=== PATIENT | female | born 1995 | race African-American/Black ===

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

== ENCOUNTER 2017-01-06 21:59 | Outpatient (CLI) | payer MEDICAID ==
--- NOTE | 2017-01-06 22:05 | Non Stress Test Report ---
Non Stress Test Datetime Report Generated by CPN: 01/06/2017 22:05 DEMOGRAPHIC EGA NST: 34.5 INDICATION Indication for Study: Ordered by Provider MONITORING Monitor Explained: Monitor Explained; Test Explained; Patient Verbalized Understanding Time on Monitor: 12/31/2016 22:20 Time off Monitor: 12/31/2016 22:59 NST Duration: 39 NST INTERVENTIONS NST Interventions: PO Hydration Physician Notified NST: Dr Richard BABY A: [id number] BABY A Contraction Frequency : x1 FHR Baseline : 140 Accelerations : 15X15 Decelerations : None Variability : Moderate 6-25bpm NST Review: Meets Criteria for Reactive NST NST Review and Verified By : Ramez Alon RN NST Results: Reactive NST REPORT Report Trigger: Send Report
[2017-01-06 22:46] LABS: APPEARANCE,URINE CLEAR; BILIRUBIN,URINE NEGATIVE (NEGATIVE); GLUCOSE, URINE NEGATIVE (NEGATIVE); KETONES,URINE NEGATIVE (NEGATIVE); LEUKOCYTE ESTERASE,URINE NEGATIVE (NEGATIVE); NITRITE,URINE NEGATIVE (NEGATIVE); PROTEIN,URINE NEGATIVE (NEGATIVE); URINE SPECIFIC GRAVITY 1.005; UROBILINOGEN,URINE NEGATIVE mg/dL (<2.0)
[2017-01-06 23:00] LABS: URINE BARBITURATES SCREEN NEGATIVE; URINE METHADONE SCREEN NEGATIVE; URINE OPIATES LOW NEGATIVE; URINE PHENCYCLIDINE SCREEN NEGATIVE
--- NOTE | 2017-01-06 23:57 | RADIOLOGY REPORT (SQ) ---
EXAM DESCRIPTION: U/S OB LIMITED COMPLETED DATE/TIME: 01/06/2017 11:48 pm REASON FOR STUDY: Placenta Status, eval for abruption COMPARISON: None. TECHNIQUE: Limited transvaginal and transabdominal grayscale ultrasound for evaluation of specific r equested obstetrical parameters. LIMITATIONS: None. FINDINGS: CERVICAL LENGTH: 3.0 cm. Closed. FHR: 141 beats per minute. PRESENTATION: Cephalic. OTHER: The placenta is posterior in location. IMPRESSION: LIMITED OBSTETRICAL ULTRASOUND WITH MEASURED PARAMETERS DELINEATED ABOVE. Trimester of : Third trimester - 28 weeks to delivery. TECHNICAL DOCUMENTATION: JOB ID: [id number] [employer]- All Rights Reserved
--- NOTE | 2017-01-07 00:24 | Non Stress Test Report ---
Non Stress Test Datetime Report Generated by CPN: 01/07/2017 00:24 DEMOGRAPHIC EGA NST: 35.4 INDICATION Indication for Study: Ordered by Provider MONITORING Monitor Explained: Monitor Explained; Test Explained; Patient Verbalized Understanding Time on Monitor: 01/06/2017 22:25 Time off Monitor: 01/07/2017 00:12 NST Duration: 107 NST INTERVENTIONS NST Interventions: PO Hydration; Reposition Patient Physician Notified NST: Carter BABY A Movement : Present Contraction Frequency : none FHR Baseline : 145 Accelerations : 15X15 Decelerations : None Variability : Moderate 6-25bpm NST Review: Meets Criteria for Reactive NST NST Review and Verified By : CAITLIN [place] Results: Reactive NST REPORT Report Trigger: Send Report
== END 2017-01-07 00:19 | disposition home or self-care (01) ==
LOC: LC 21:59
PROVIDERS: ATTEND Student in an Organized Health Care Education/Training Program
PROC: 4A1HXCZ Monitoring of Products of Conception, Cardiac Rate, External Approach (ICD-10-PCS; principal; 2017-01-06)
DX: O47.03 False labor before 37 completed weeks of gestation, third trimester (principal); Z3A.35 35 weeks gestation of pregnancy
CPT/HCPCS: 59025; 76815; 80307; 81001

== ENCOUNTER 2017-01-26 12:32 | Outpatient (CLI) | payer MEDICAID ==
[2017-01-26 13:19] LABS: APPEARANCE,URINE CLOUDY; BILIRUBIN,URINE NEGATIVE (NEGATIVE); GLUCOSE, URINE NEGATIVE (NEGATIVE); KETONES,URINE NEGATIVE (NEGATIVE); LEUKOCYTE ESTERASE,URINE NEGATIVE (NEGATIVE); NITRITE,URINE NEGATIVE (NEGATIVE); PROTEIN,URINE NEGATIVE (NEGATIVE); URINE SPECIFIC GRAVITY 1.006; UROBILINOGEN,URINE NEGATIVE mg/dL (<2.0)
[2017-01-26 13:50] LABS: URINE BARBITURATES SCREEN NEGATIVE; URINE METHADONE SCREEN NEGATIVE; URINE OPIATES LOW NEGATIVE; URINE PHENCYCLIDINE SCREEN NEGATIVE
--- NOTE | 2017-01-26 14:22 | Non Stress Test Report ---
Non Stress Test Datetime Report Generated by CPN: 01/26/2017 14:22 DEMOGRAPHIC Test Number: 1 EGA NST: 38.3 INDICATION Indication for Study: Ordered by Provider Indication for Study (NST) Other: LC MONITORING Monitor Explained: Monitor Explained; Test Explained; Patient Verbalized Understanding Time on Monitor: 01/26/2017 12:53 NST INTERVENTIONS NST Interventions: PO Hydration Physician Notified NST: Tolbert BABY A: [id number] BABY A Movement : Present Contraction Frequency : 0 FHR Baseline : 135 Accelerations : 15X15 Decelerations : None Variability : Moderate 6-25bpm NST Review: Meets Criteria for Reactive NST NST Review and Verified By : D Bellavance RNC NST Results: Reactive NST REPORT Report Trigger: Send Report
== END 2017-01-26 14:23 | disposition home or self-care (01) ==
LOC: LC 12:32
PROVIDERS: ATTEND Obstetrics & Gynecology
PROC: 4A1HXCZ Monitoring of Products of Conception, Cardiac Rate, External Approach (ICD-10-PCS; principal; 2017-01-26)
DX: O47.1 False labor at or after 37 completed weeks of gestation (principal); Z3A.38 38 weeks gestation of pregnancy
CPT/HCPCS: 59025; 80307; 81005

== ENCOUNTER 2017-01-27 22:09 | Inpatient (IN) | payer MEDICAID ==
[2017-01-27] MEDS ORDERED: RINGERS SOLUTION,LACTATED 1,000 ML IV ONE (22:51)
[2017-01-27] MEDS ORDERED: MISOPROSTOL 0.2 MG TABLET ONE (23:19)
[2017-01-27] MEDS ORDERED: OXYTOCIN/NORMAL SALINE 0 UNIT/0 ML RTUINJ ONE (23:20)
[2017-01-27] MEDS ORDERED: FENTANYL/BUPIVACAINE/NS/PF 200 MCG/100 ML RTUINJ EPI ONE (23:20)
[2017-01-27] MEDS ORDERED: LIDOCAINE 1% INJ-PF (10 MG/ML) 30 ML SDV ONE (23:20)
[2017-01-27] MEDS ORDERED: EPHEDRINE SULFATE INJ 50 MG/1 ML AMPULE ONE (23:20)
[2017-01-27] MEDS ORDERED: BUPIVACAINE HCL 0.25 % INJ/PF (2.5 MG/1 ML) 30 ML VIAL ONE (23:21)
[2017-01-27 23:38] LABS: ABSOLUTE EOSINOPHILS # (AUTO) 0.1 10^3/uL (0.0-0.6); ABSOLUTE LYMPHOCYTES (AUTO) 1.5 10^3/uL (0.5-4.7); ABSOLUTE MONOCYTES (AUTO) 0.9 10^3/uL (0.1-1.4); ABSOLUTE NEUT (AUTO) 7.5 10^3/uL (1.7-8.2); BASOPHILS % (AUTO) 0.5 % (0-2); EOSINOPHILS % (AUTO) 0.7 % (0-6); HEMATOCRIT 31.6 % (36.0-47.0); HEMOGLOBIN 10.5 g/dL (12.0-15.5); HGB HCT DIFFERENCE -0.1; LYMPHOCYTES % (AUTO) 15.1 % (13-45); MEAN CORPUSCULAR HEMOGLOBIN 26.5 pg (27.0-33.4); MEAN CORPUSCULAR HGB CONC 33.3 g/dL (32.0-36.0); MEAN CORPUSCULAR VOLUME 80 fl (80-97); MONOCYTES % (AUTO) 8.8 % (3-13); RED BLOOD COUNT 3.98 10^6/uL (3.72-5.28); RED CELL DISTRIBUTION WIDTH 15.2 % (11.5-14.0); SEGMENTED NEUTROPHILS % (AUTO) 74.9 % (42-78)
[2017-01-27] MEDS ORDERED: BUPIVACAINE HCL 0.25 % INJ/PF (2.5 MG/1 ML) 30 ML VIAL INFIL ONE (23:41)
[2017-01-27] MEDS ORDERED: FENTANYL/BUPIVACAINE/NS/PF 200 MCG/100 ML RTUINJ EPI PRN (23:41)
[2017-01-27] MEDS ORDERED: DIPHENHYDRAMINE HCL 50 MG/ML VIAL IV PRN (23:41)
[2017-01-27] MEDS ORDERED: BENZOIN/ALOE VERA/STORAX/TOLU TINCTURE 60 ML TP PRN (23:41)
[2017-01-27] MEDS ORDERED: EPHEDRINE SULFATE INJ 50 MG/1 ML AMPULE IV PRN (23:41)
[2017-01-28] MEDS: RINGERS SOLUTION,LACTATED 1,000 ML IV PRN ×2 (01:17→01:19)
[2017-01-28 01:56] LABS: APPEARANCE,URINE CLEAR; BILIRUBIN,URINE NEGATIVE (NEGATIVE); GLUCOSE, URINE NEGATIVE (NEGATIVE); KETONES,URINE 20 mg/dL (NEGATIVE); LEUKOCYTE ESTERASE,URINE NEGATIVE (NEGATIVE); NITRITE,URINE NEGATIVE (NEGATIVE); PROTEIN,URINE NEGATIVE (NEGATIVE); URINE SPECIFIC GRAVITY 1.006; UROBILINOGEN,URINE NEGATIVE mg/dL (<2.0)
[2017-01-28 02:03] LABS: URINE BARBITURATES SCREEN NEGATIVE; URINE METHADONE SCREEN NEGATIVE; URINE OPIATES LOW NEGATIVE; URINE PHENCYCLIDINE SCREEN NEGATIVE
[2017-01-28] MEDS ORDERED: OXYTOCIN/NORMAL SALINE 20 UNIT/1,000 ML RTUINJ IV PRN ×2 (02:51→04:27)
[2017-01-28] MEDS ORDERED: OXYTOCIN/NORMAL SALINE 20 UNIT/1,000 ML RTUINJ ONE ×2 (02:53→07:05)
[2017-01-28] MEDS ORDERED: IBUPROFEN 800 MG TABLET ONE (04:11)
[2017-01-28] MEDS ORDERED: DIPHENHYDRAMINE HCL 25 MG CAPSULE PO PRN (04:27)
[2017-01-28] MEDS ORDERED: DIBUCAINE 1% OINTMENT 28 GM TP PRN (04:27)
[2017-01-28] MEDS ORDERED: ACETAMINOPHEN WITH CODEINE #3 TABLET PO PRN (04:27)
[2017-01-28] MEDS ORDERED: MAGNESIUM HYDROXIDE SUSP 30 ML UDCUP PO PRN (04:27)
[2017-01-28] MEDS ORDERED: ZOLPIDEM TARTRATE 5 MG TABLET PO PRN (04:27)
[2017-01-28] MEDS ORDERED: ACETAMINOPHEN 650 MG SUPP.RECT PR PRN (04:27)
[2017-01-28] MEDS ORDERED: GLYCERIN/WITCH HAZEL LEAF 1 EACH MED..PAD TP PRN (04:27)
[2017-01-28] MEDS ORDERED: BENZOCAINE/MENTHOL AEROSOL SPRAY 56 ML TOP PRN (04:27)
[2017-01-28] MEDS ORDERED: MEASLES,MUMPS&RUBELLA VACC/PF 0.5 ML VIAL SUBCUT PRN (04:27)
[2017-01-28] MEDS ORDERED: PROMETHAZINE HCL 25 MG TABLET PO PRN (04:27)
[2017-01-28] MEDS ORDERED: DIPH/PERTUSS(ACELL)/TETANUS VAC/PF 0.5 ML SYR (>=10YO) IM PRN (04:27)
[2017-01-28] MEDS ORDERED: NA PHOS,M-B/NA PHOS,DI-BA (ADULT) 133 ML ENEMA PR PRN (04:27)
[2017-01-28] MEDS ORDERED: PROMETHAZINE HCL INJ 25 MG/1 ML VIAL IV PRN (04:27)
[2017-01-28] MEDS ORDERED: PROMETHAZINE HCL 25 MG SUPP.RECT PR PRN (04:27)
[2017-01-28] MEDS ORDERED: PSEUDOEPHEDRINE HCL 30 MG TABLET PO PRN (04:27)
--- NOTE | 2017-01-28 04:39 | Delivery Summary ---
Del Sum A-C Datetime Report Generated by CPN: 01/28/2017 04:39 DELIVERY PERSONNEL DELIVERY PERSONNEL: [id number] Delivery Doctor:: Kristi Carter MD Anesthesiologist:: Dylan Mcclain MD Labor and Delivery Nurse:: Albertina Villela RNforestry laborer Nurse:: Adeline Arevalo RN Cement Finisher Apprentice:: Maegan Ruelas RN Nursery Nurse:: Bharati Faustin RN Brush Cleaner/PIPE JEEPER: Leatha Greene, ST MATERNAL INFORMATION Delivery Anesthesia: Epidural Medications After Delivery: Pitocin Drip 20 Units/1000ml NSS Estimated Blood Loss (ml): 250 Maternal Complications: None Provider Comments: VFI delivered in DONNA presentation with compound cord. Shoulders and body delivered without difficulty. Cord doubly clamped and cut and to maternal abdomen for NRP. Placenta delivered intact spontaneously. Not sent to pathology. Uterine exploration performed and negative. FF at U. Good hemostasis after repair. Mother and baby stable upon provider leaving the room. LABOR SUMMARY EDC: 02/06/2017 00:00 No. Babies in Womb: 1 Attempted: No Labor Anesthesia: Epidural LABOR INFORMATION Reason for Induction: Not Applicable Onset of Labor: 01/27/2017 22:47 Complete Dilatation: 01/28/2017 03:21 Oxytocin: Augmentation Group B Beta Strep: Negative Antibiotics # of Doses: 0 Steroids Given: None Reason Steroids Not Administered: Not Applicable MEMBRANES Membranes Rupture Method: Spontaneous Rupture of Membranes: 01/28/2017 01:57 Length of Rupture (hr): 1.90 Amniotic Fluid Color: Light Meconium Amniotic Fluid Amount: Moderate Amniotic Fluid Odor: Normal STAGES OF LABOR Stage 1 hr: 4 Stage 1 min: 34 Stage 2 hr: 0 Stage 2 min: 30 Stage 3 hr: 0 Stage 3 min: 5 Total Time in Labor hr: 5 Total Time in Labor min: 9 VAGINAL DELIVERY Episiotomy: None Laceration #1: Perineal Laceration Extension #1: First Degree Other Laceration: superficial first degree laceration Laceration Repair: Yes Laceration Repair Note: suferficial 1st degree laceration repaired in usual fashion. Good hemostasis. Sponge Count Correct: N/A CSECTION DELIVERY Primary Indication: N/A Secondary Indication: N/A CSection Incidence: N/A Labor: N/A Elective: N/A CSection Incision: N/A BABY A INFORMATION Infant Delivery Date/Time: 01/28/2017 03:51 Method of Delivery: Vaginal Born in Route : No : N/A Forceps: N/A Vacuum Extraction: N/A Shoulder Dystocia : No PRESENTATION/POSITION BABY A Presentation: Cephalic Cephalic Presentation: Vertex Vertex Position: Left Occipital Anterior Breech Presentation: N/A PLACENTA INFORMATION BABY A Placenta Delivery Time : 01/28/2017 03:56 Placenta Method of Delivery: Spontaneous Placenta Status: Delivered SCORES BABY A Heart Rate 1 min: >100 bpm Resp Effort 1 min: Good Cry Reflex Irritability 1 min: Cough or Sneeze or Pulls Away Muscle Tone 1 min: Active Motion Color 1 min: Blue/Pale SCORE 1 MIN: 8 Heart Rate 5 min: >100 bpm Resp Effort 5 min: Good Cry Reflex Irritability 5 min: Cough or Sneeze or Pulls Away Muscle Tone 5 min: Active Motion Color 5 min: Body [place], Extremities Blue SCORE 5 MIN: 9 INFANT INFORMATION BABY A Gestational Age at Delivery: 38.5 Gestational Status: Early Term- 37- 38.6 Weeks Outcome : Liveborn Infant Condition : Stable Sex: Male IDENTIFICATION BABY A Verification Date/Time: 01/28/2017 04:05 ID Band Number: [id number] Mother's Name Verified: Yes RN Verifying : R Arevalo, RNC Additional Verifying Personnel: C Drew, RN WEIGHT/LENGTH BABY A Infant Birthweight (gm): 2930 Infant Weight (lb): 6 Infant Weight (oz): 7 Infant Length (in): 19.50 Length (cm): 49.53 CORD INFORMATION BABY A No. Cord Vessels: 3 Nuchal Cord : N/A Cord Blood Taken: Yes-For Storage (Mom's Blood type +) Infant Suction: Mouth; Nose ASSESSMENT BABY A Infant Complications: Meconium Skin to Skin: Yes Manager Print/ALS Called : No Care By: R. Faustin, RN BABY B INFORMATION : N/A SIGNATURES Signature: with User ID: [email or web address]
--- NOTE | 2017-01-28 06:04 | Admission Physical ---
Datetime Report Generated by CPN: 01/28/2017 06:04 CURRENT ADMISSION Chief Complaint: Uterine Contractions Indication for Induction: Not Applicable Indication for Induction: Term, Intrauterine ; Active Labor Admit Plan: Admit to Unit; Initiate Labor Protocol ALLERGIES Medication Allergies: No Medication Allergies: No Known Allergies (01/27/2017) Medication Allergies: No Known Allergies (01/06/2017) Medication Allergies: No Known Allergies (12/31/2016) Medication Allergies: No Known Allergies (12/08/2016) Medication Allergies: No Known Allergies (10/22/2016) Medication Allergies: No Known Allergies (07/07/2016) Latex: No Latex Allergies Food Allergies: none Environmental Allergies: none OBSTETRICAL HISTORY EDC: 02/06/2017 00:00 : 1 Para: 0 Term: 0 : 0 SAB: 0 IAB: 0 Ectopic: 0 Livin Cesareans: 0 VBACs: 0 Multiple Births: 0 Gestational Diabetes: No Rh Sensitization: No Incompetent Cervix: No PAYTON: No Infertility: No ART Treatment: No Uterine Anomaly: No IUGR: No Hx Previous C/S: No Macrosomia: No Hx Loss/Stillborn: No PIH: No Hx : No Placenta Previa/Abruption: No Depression/PP Depression: No PTL/PROM: No Post Hemorrhage: No Current Procedures: Ultrasound Obstetrical History Comments: G1: current SEE RECORDS Alcohol: No Marijuana : No Cocaine: No Other Illicit Drugs: No Cigarettes: Never Smoker. 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 Surgery: No Heart Disease: No Hosp/Surgery: No Autoimmune Disorder: No Anesthetic Complications: No Kidney Disease: No Abnormal Pap Smear: No Neuro/Epilepsy: No Psychiatric Disorders: No Other Medical Diseases: No Hepatitis/Liver Disease: No Significant Family History: No Varicosities/Phlebitis: No Trauma/Violence : No Thyroid Dysfunction: No INFECTIOUS HISTORY Gonorrhea: No Genital Herpes: No Chlamydia: No Tuberculosis: No Syphilis: No Hepatitis: No HIV/AIDS Exposure: No Rash or Viral Illness: No HPV: No PHYSICAL EXAM General: Normal HEENT: Normal Neurologic: Normal Thyroid: Normal Heart: Normal Lungs: Normal Breast: Deferred Back: Normal Abdomen: Normal Genitourinary Exam: Normal Extremities: Normal DTRs: Normal Pelvic Type: Adequate Vital Signs: Reviewed VAGINAL EXAM Dilatation: 7 Effacement: 100 Station: -1 Contraction Comments: q3-4 MEMBRANES Membranes: Intact FETUS A EGA: 38.4 Monitoring: External US FHR- Baseline: 150 Variability: Moderate 6-25bpm Accelerations: 15X15 Decelerations: None FHR Category: Category I Presentation: Vertex Admit Comment: 21yo at 38+5ega presents to l_D for evaluation due to unable to void and back pain. Upon evaluation the patient was noted to be 7cm dilated and aris. BOW intact. She was admitted and pt desires epidural. c/b teen , Obesity, [facility] transfer at 15weeks. 1hr GTT normal. Anticipate . Reassuring FWB. GBS negative. PLANS FOR LABOR AND DELIVERY Labor and Delivery: None Pain Management: None Feeding Preference: Breast Benefit of Breast Feed Discussed: Yes Circumcision: Yes INFORMED CONSENT Informed Consent Obtained: Vaginal Delivery; Risks, Benefits and Alternatives Discussed Signature: with User ID: [email or web address]
[2017-01-28] MEDS: IBUPROFEN 800 MG TABLET PO SCH ×3 (06:41→22:14)
[2017-01-28] MEDS ORDERED: MISOPROSTOL 0.2 MG TABLET ONE (07:05)
[2017-01-28] MEDS ORDERED: NALBUPHINE HCL INJ 10 MG/1 ML AMPULE ONE (07:05)
[2017-01-28] MEDS ORDERED: CEFAZOLIN 2 GM/D5W RTU 2 GM/50 ML RTUPB IV ONE (07:10)
--- NOTE | 2017-01-28 07:21 | PDOC PROGRESS REPORT ---
Subjective Progress Note for:: 01/28/17 Subjective:: called by RN to eval bleeding. Pt has just arrived to floor. Physical Exam - Physical Exam Vital Signs: Temp Pulse Resp BP Pulse Ox 99.6 F 87 18 122/68 98 01/28/17 06:08 01/28/17 06:08 01/28/17 06:08 01/28/17 06:08 01/28/17 06:08 Intake & Output 01/27/17 01/28/17 01/29/17 06:59 06:59 06:59 Weight 99.35 kg General appearance: PRESENT: cooperative, mild distress, other - mild distres due to pain. Head exam: PRESENT: atraumatic, normocephalic Vascular exam: PRESENT: normal capillary refill Gentrourinary exam: PRESENT: other - laceration intact. Approx 300-400ml in pads on floor. vaginal exam reveals very distended uterus and VANESA. Neurological exam: PRESENT: alert, awake, oriented to person, oriented to place , oriented to time, oriented to situation, CN II-XII grossly intact. ABSENT: motor sensory deficit Skin exam: PRESENT: dry, intact, warm. ABSENT: cyanosis, rash Result Laboratory Results: 01/27/17 23:18 01/27/17 01/27/17 01/27/17 22:15 23:18 23:18 WBC 10.0 RBC 3.98 Hgb 10.5 L Hct 31.6 L MCV 80 MCH 26.5 L MCHC 33.3 RDW 15.2 H Plt Count 402 Seg Neutrophils % 74.9 Lymphocytes % 15.1 Monocytes % 8.8 Eosinophils % 0.7 Basophils % 0.5 Absolute Neutrophils 7.5 Absolute Lymphocytes 1.5 Absolute Monocytes 0.9 Absolute Eosinophils 0.1 Absolute Basophils 0.0 Urine Color Cancelled Urine Appearance Cancelled Urine pH Cancelled Ur Specific [place] Cancelled Urine Protein Cancelled Urine Glucose (UA) Cancelled Urine Ketones Cancelled Urine Blood Cancelled Urine Nitrite Cancelled Ur Leukocyte Esterase Cancelled Blood Type A POSITIVE Antibody Screen NEGATIVE 01/28/17 01:35 WBC RBC Hgb Hct MCV MCH MCHC RDW Plt Count Seg Neutrophils % Lymphocytes % Monocytes % Eosinophils % Basophils % Absolute Neutrophils Absolute Lymphocytes Absolute Monocytes Absolute Eosinophils Absolute Basophils Urine Color YELLOW Urine Appearance CLEAR Urine pH 6.0 Ur Specific [place] 1.006 Urine Protein NEGATIVE Urine Glucose (UA) NEGATIVE Urine Ketones 20 H Urine Blood MODERATE H Urine Nitrite NEGATIVE Ur Leukocyte Esterase NEGATIVE Blood Type Antibody Screen Assessment & Plan - Diagnosis (1) Vaginal delivery Is this a current diagnosis for this admission?: Yes Plan: s/p uncomplicated with 1st degree perineal laceration. (2) hemorrhage, delivered Is this a current diagnosis for this admission?: Yes Plan: 600-800 ml of clot and blood evacuated from uterus on SVE. Total EBL from this encounter 900-1200ml then approx 250ml for delivery. 2 grams of Ancef ordered and Tomas to gravity ordered. Pitocin given 20units added to bag. 1000mcg misoprostol given. Once clots evacuated fundal rubs did not elicit any further bleeding. Reviewed plan of care with pt. If needed may need give methergine as well. Continue to monitor for for e/o repeat bleeding. - Time Time Spent with patient: 25-34 minutes Critical Time spent with patient: 25-34 minutes Medications reviewed and adjusted accordingly: Yes Anticipated discharge: Home Within: within 48 hours - Inpatient Certification Based on my medical assessment, after consideration of the patient's comorbidities, presenting symptoms, or acuity I expect that the services needed warrant INPATIENT care.: Yes I certify that my determination is in accordance with my understanding of Medicare's requirements for reasonable and necessary INPATIENT services [42 CFR 412.3e].: Yes Medical Necessity: Need Close Monitoring Due to Risk of Patient Decompensation, Need for IV Antibiotics - Plan Summary Plan Summary: PPD0 from . Will continue to monitor.
[2017-01-28] MEDS: PRENATAL VITAMIN W-O CA NO5/FE FUMARATE/FA CAPSULE PO SCH (09:46)
[2017-01-28] MEDS: DOCUSATE SODIUM 100 MG CAPSULE PO SCH ×2 (09:46→17:16)
[2017-01-28] MEDS: SENNOSIDES/DOCUSATE 8.6-50 MG 1 EACH TABLET PO SCH (09:47)
[2017-01-28] MEDS: FAMOTIDINE 20 MG TABLET PO SCH ×2 (09:47→22:14)
[2017-01-28] MEDS: FERROUS SULFATE 325 MG TABLET PO SCH ×2 (09:47→17:16)
[2017-01-28 11:37] LABS: HEMATOCRIT 23.5 % (36.0-47.0); HGB HCT DIFFERENCE -0.1; MEAN CORPUSCULAR HEMOGLOBIN 26.3 pg (27.0-33.4); MEAN CORPUSCULAR HGB CONC 33.1 g/dL (32.0-36.0); MEAN CORPUSCULAR VOLUME 79 fl (80-97); RED BLOOD COUNT 2.96 10^6/uL (3.72-5.28); RED CELL DISTRIBUTION WIDTH 15.2 % (11.5-14.0)
[2017-01-28 11:41] LABS: HEMOGLOBIN 7.8 g/dL (12.0-15.5)
--- NOTE | 2017-01-28 13:06 | PDOC PROGRESS REPORT ---
Subjective-OB Subjective: Post Delivery Day: 21 year old. Denies any needs at this time. Pt feeling fine. FC in place, clear yellow urine. Bleeding has slowed down. She has no complaints. Physical Exam (OB) Vital Signs: Temp Pulse Resp BP Pulse Ox 98.7 F 81 16 122/79 99 01/28/17 12:37 01/28/17 12:37 01/28/17 12:37 01/28/17 12:37 01/28/17 12:37 Intake & Output 01/27/17 01/28/17 01/29/17 06:59 06:59 06:59 Weight 99.35 kg - PIH/Pre-Eclampsia Headache: Absent Epigastric Pain: No Visual Changes: No - Lochia Lochia Amount: Heavy >50 ml Lochia Color: Rubra/Red - Abdomen Description: Soft Hernia Present: No Fundal Description: Firm, Midline Fundal Height: u/u - u/2 Objective-Diagnostic Laboratory: 01/28/17 10:56 01/27/17 01/27/17 01/27/17 22:15 23:18 23:18 WBC 10.0 RBC 3.98 Hgb 10.5 L Hct 31.6 L MCV 80 MCH 26.5 L MCHC 33.3 RDW 15.2 H Plt Count 402 Seg Neutrophils % 74.9 Lymphocytes % 15.1 Monocytes % 8.8 Eosinophils % 0.7 Basophils % 0.5 Absolute Neutrophils 7.5 Absolute Lymphocytes 1.5 Absolute Monocytes 0.9 Absolute Eosinophils 0.1 Absolute Basophils 0.0 Urine Color Cancelled Urine Appearance Cancelled Urine pH Cancelled Ur Specific [place] Cancelled Urine Protein Cancelled Urine Glucose (UA) Cancelled Urine Ketones Cancelled Urine Blood Cancelled Urine Nitrite Cancelled Ur Leukocyte Esterase Cancelled Blood Type A POSITIVE Antibody Screen NEGATIVE 01/28/17 01/28/17 01:35 10:56 WBC 13.0 H RBC 2.96 L Hgb 7.8 L D Hct 23.5 L MCV 79 L MCH 26.3 L MCHC 33.1 RDW 15.2 H Plt Count 353 Seg Neutrophils % Lymphocytes % Monocytes % Eosinophils % Basophils % Absolute Neutrophils Absolute Lymphocytes Absolute Monocytes Absolute Eosinophils Absolute Basophils Urine Color YELLOW Urine Appearance CLEAR Urine pH 6.0 Ur Specific [place] 1.006 Urine Protein NEGATIVE Urine Glucose (UA) NEGATIVE Urine Ketones 20 H Urine Blood MODERATE H Urine Nitrite NEGATIVE Ur Leukocyte Esterase NEGATIVE Blood Type Antibody Screen Assessment and Plan(PN) - Assessment and Plan (1) hemorrhage, delivered Is this a current diagnosis for this admission?: Yes (2) Vaginal delivery Is this a current diagnosis for this admission?: Yes - Time Spent with Patient Time with patient: Less than 15 minutes Medications reviewed and adjusted accordingly: Yes - Disposition Anticipated Discharge: Home Within: within 24 hours
[2017-01-28] MEDS: ACETAMINOPHEN WITH CODEINE #3 TABLET PO PRN (20:31)
[2017-01-29] MEDS: IBUPROFEN 800 MG TABLET PO SCH ×3 (05:41→21:02)
[2017-01-29 07:36] LABS: HEMATOCRIT 22.3 % (36.0-47.0); HGB HCT DIFFERENCE 0.2; MEAN CORPUSCULAR HGB CONC 33.7 g/dL (32.0-36.0); MEAN CORPUSCULAR VOLUME 80 fl (80-97); RED BLOOD COUNT 2.78 10^6/uL (3.72-5.28); RED CELL DISTRIBUTION WIDTH 15.3 % (11.5-14.0); WHITE BLOOD COUNT 9.3 10^3/uL (4.0-10.5)
[2017-01-29 07:54] LABS: HEMOGLOBIN 7.5 g/dL (12.0-15.5)
[2017-01-29] MEDS: FERROUS SULFATE 325 MG TABLET PO SCH ×2 (09:41→17:55)
[2017-01-29] MEDS: SENNOSIDES/DOCUSATE 8.6-50 MG 1 EACH TABLET PO SCH (09:41)
[2017-01-29] MEDS: DOCUSATE SODIUM 100 MG CAPSULE PO SCH ×2 (09:41→17:55)
[2017-01-29] MEDS: FAMOTIDINE 20 MG TABLET PO SCH ×2 (09:41→21:02)
[2017-01-29] MEDS: PRENATAL VITAMIN W-O CA NO5/FE FUMARATE/FA CAPSULE PO SCH (09:41)
[2017-01-29] MEDS: ACETAMINOPHEN WITH CODEINE #3 TABLET PO PRN (10:33)
--- NOTE | 2017-01-29 10:36 | PDOC PROGRESS REPORT ---
Subjective-OB Subjective: Post Delivery Day: 1 21 year old. Denies any needs at this time, states lochia is stable, pain is well controlled, voiding without difficulty, passing gas, tolerating diet. Physical Exam (OB) Vital Signs: Temp Pulse Resp BP Pulse Ox 98.4 F 82 17 112/74 100 01/29/17 08:00 01/29/17 08:00 01/29/17 08:00 01/29/17 08:00 01/29/17 08:00 Intake & Output 01/28/17 01/29/17 01/30/17 06:59 06:59 06:59 Intake Total 1800 Output Total 1000 1125 Balance 800 -1125 Weight 99.35 kg - PIH/Pre-Eclampsia Clonus: Negative Headache: Absent Epigastric Pain: No Visual Changes: No - Lochia Lochia Amount: Scant < 10 ml Lochia Color: Rubra/Red - Abdomen Description: Soft Hernia Present: No Fundal Description: Firm, Midline Fundal Height: u/u - u/2 Objective-Diagnostic Laboratory: 01/29/17 06:56 01/28/17 01/29/17 10:56 06:56 WBC 13.0 H 9.3 RBC 2.96 L 2.78 L Hgb 7.8 L D 7.5 L Hct 23.5 L 22.3 L MCV 79 L 80 MCH 26.3 L 27.0 MCHC 33.1 33.7 RDW 15.2 H 15.3 H Plt Count 353 341 Assessment and Plan(PN) - Assessment and Plan (1) Acute blood loss anemia Is this a current diagnosis for this admission?: Yes Plan: ferrous sulfate increase dietary iron (2) hemorrhage, delivered Is this a current diagnosis for this admission?: Yes Plan: monitor (3) Vaginal delivery Is this a current diagnosis for this admission?: Yes Plan: routine post op care - Time Spent with Patient Time with patient: Less than 15 minutes Critical Time spent with patient: Less than 15 minutes Medications reviewed and adjusted accordingly: Yes - Disposition Anticipated Discharge: Home Within: within 24 hours
[2017-01-30] MEDS: IBUPROFEN 800 MG TABLET PO SCH (05:57)
[2017-01-30 08:26] VITALS: BP 117/76
--- NOTE | 2017-01-30 09:56 | PDOC DISCHARGE SUMMARY ---
Final Diagnosis Discharge Date: 01/30/17 - Final Diagnosis (1) Acute blood loss anemia Is this a current diagnosis for this admission?: Yes (2) hemorrhage, delivered Is this a current diagnosis for this admission?: Yes (3) Vaginal delivery Is this a current diagnosis for this admission?: Yes Discharge Data - Discharge Medication Home Medications: Prenat 115/Iron Fum/Folic/Dss [ 19 Tablet] 1 each PO DAILY 10/22/16 Docusate Sodium [Colace 100 mg Capsule] 100 mg PO BID #60 capsule 01/30/17 Ferrous Sulfate [Feosol 325 mg Tablet] 325 mg PO BID #60 tablet 01/30/17 Ibuprofen [Motrin 800 mg Tablet] 800 mg PO Q8 #60 tablet 01/30/17 Gestational Age: 38.5 Reason(s) for Admission: Onset of Labor Procedures: NST Intrapartum Procedure(s): Spontaneous Vaginal Delivery Complication(s): Laceration-Perineal Laceration-Degree: 1st - Data Baby 1 Male at 1 minute: 8 at 5 minutes: 9 Weight: 2930 kg Home with Mother: Yes Complications: No - Diagnosis Test Laboratory: Temp Pulse Resp BP Pulse Ox 98.2 F 77 17 117/76 97 01/30/17 09:39 01/30/17 09:39 01/30/17 09:39 01/30/17 08:10 01/30/17 09:39 01/27/17 01/27/17 01/28/17 22:15 23:18 01:35 RBC 3.98 Hgb 10.5 L Hct 31.6 L Urine Opiates Screen Cancelled NEGATIVE 01/28/17 01/29/17 10:56 06:56 RBC 2.96 L 2.78 L Hgb 7.8 L D 7.5 L Hct 23.5 L 22.3 L Urine Opiates Screen - Discharge information/Instructions Discharge Activity: Activity As Tolerated, Pelvic Rest, No tub bath Discharge Diet: Regular Disposition: HOME, SELF-CARE Follow up with: [facility] in: 4, Weeks
[2017-01-30] MEDS: FAMOTIDINE 20 MG TABLET PO SCH (10:43)
[2017-01-30] MEDS: PRENATAL VITAMIN W-O CA NO5/FE FUMARATE/FA CAPSULE PO SCH (10:43)
[2017-01-30] MEDS: DOCUSATE SODIUM 100 MG CAPSULE PO SCH (10:43)
[2017-01-30] MEDS: SENNOSIDES/DOCUSATE 8.6-50 MG 1 EACH TABLET PO SCH (10:43)
[2017-01-30] MEDS: FERROUS SULFATE 325 MG TABLET PO SCH (10:43)
== END 2017-01-30 11:34 | disposition home or self-care (01) | DRG 774 ==
LOC: LC 22:09 → LR 22:59 → 2S 01-28 06:02
PROVIDERS: ADMIT Student in an Organized Health Care Education/Training Program; ATTEND Student in an Organized Health Care Education/Training Program
PROC: 10E0XZZ Delivery of Products of Conception, External Approach (ICD-10-PCS; principal; 2017-01-28)
PROC: 0HQ9XZZ Repair Perineum Skin, External Approach (ICD-10-PCS; 2017-01-28)
PROC: 4A1HXCZ Monitoring of Products of Conception, Cardiac Rate, External Approach (ICD-10-PCS; 2017-01-28)
DX: O99.214 Obesity complicating childbirth (principal); O72.1 Other immediate postpartum hemorrhage; D62 Acute posthemorrhagic anemia; O99.02 Anemia complicating childbirth; O70.0 First degree perineal laceration during delivery; O77.0 Labor and delivery complicated by meconium in amniotic fluid; E66.9 Obesity, unspecified; Z37.0 Single live birth; Z3A.38 38 weeks gestation of pregnancy
CPT/HCPCS: 36415; 80307; 81005; 85025; 85027; 86592; 86850; 86900; 86901; J0690; J2300; J2590; J3490

== ENCOUNTER 2017-02-18 23:11 | Emergency (ER) | payer MEDICAID ==
[2017-02-19] MEDS ORDERED: KETOROLAC TROMETHAMINE INJ/PF 30 MG/1 ML SDV IV ONE (00:15)
[2017-02-19] MEDS ORDERED: ONDANSETRON HCL INJ/PF 4 MG/2 ML SDV IV ONE (00:15)
--- NOTE | 2017-02-19 00:31 | ER Document Report ---
ED General - General Chief Complaint: Abdominal Pain Stated Complaint: ABDOMINAL PAIN Time Seen by Provider: 02/19/17 00:11 Mode of Arrival: Ambulatory Information source: Patient Notes: 22-year-old female presents with complaints of 9 month duration of abdominal pain. Patient notes the pain is generalized in the epigastric right upper quadrant, radiates to her back to her right shoulder. Patient states the pain sometimes makes her short of breath. Initially the pain would occur lasting about 5-10 minutes at a time but now lasts for a few hours at a time. Patient states it initially began when she was only 15 weeks and has continued since she had always been told that it was due to the but she delivered 3 weeks ago has had no fevers throughout this process. Patient also notes vaginal delivery with no complications TRAVEL OUTSIDE OF THE [place] IN LAST 30 DAYS: No - HPI Onset: Other Onset/Duration: Persistent Quality of pain: Achy Severity: Mild Pain Level: 1 Associated symptoms: Nausea, Vomiting Exacerbated by: Food Relieved by: Denies Similar symptoms previously: Yes Recently seen / treated by doctor: Yes - Related Data Allergies/Adverse Reactions: No Known Allergies Allergy (Verified 01/27/17 23:41) Past Medical History - Social History Smoking Status: Never Smoker Cigarette use (# per day): No Chew tobacco use (# tins/day): No Smoking Education Provided: No Family History: Reviewed & Not Pertinent Patient has suicidal ideation: No Patient has homicidal ideation: No Renal/ Medical History: Denies: Hx Peritoneal Dialysis Traumatic Medical History: Reports: Hx Fractures Past Surgical History: Reports: Hx Abdominal Surgery - umbilical hernia at 4 yrs. old, Hx Orthopedic Surgery - rt arm broken at 16 yrs. old (reset) - Immunizations Immunizations up to date: Yes Hx Diphtheria, Pertussis, Tetanus Vaccination: Yes - 09/01/15 Review of Systems - Review of Systems Notes: REVIEW OF SYSTEMS: CONSTITUTIONAL : Denies fever, chills, or sweats. Denies recent illness. EENT: Denies eye, ear, throat, or mouth pain or symptoms. Denies nasal or sinus congestion or discharge. Denies throat, tongue, or mouth swelling or difficulty swallowing. CARDIOVASCULAR: Denies chest pain. Denies palpitations or racing or irregular heart beat. Denies ankle edema. RESPIRATORY: Denies cough, cold, or chest congestion. Denies shortness of breath, difficulty breathing, or wheezing. GASTROINTESTINAL: Admits to abdominal pain nausea vomiting GENITOURINARY: Denies difficulty urinating, painful urination, burning, frequency, blood in urine, or discharge. FEMALE GENITOURINARY: Denies vaginal bleeding, heavy or abnormal periods, irregular periods. Denies vaginal discharge or odor. MUSCULOSKELETAL: Denies back or neck pain or stiffness. Denies joint pain or swelling. SKIN: Denies rash, lesions or sores. HEMATOLOGIC : Denies easy bruising or bleeding. LYMPHATIC: Denies swollen, enlarged glands. NEUROLOGICAL: Denies confusion or altered mental status. Denies passing out or loss of consciousness. Denies dizziness or lightheadedness. Denies headache. Denies weakness or paralysis or loss of use of either side. Denies problems with gait or speech. Denies sensory loss, numbness, or tingling. Denies seizures. PSYCHIATRIC: Denies anxiety or stress. Denies depression, suicidal ideation, or homicidal ideation. ALL OTHER SYSTEMS REVIEWED AND NEGATIVE. PHYSICAL EXAMINATION: GENERAL: Well-appearing, well-nourished and in no acute distress. HEAD: Atraumatic, normocephalic. EYES: Pupils equal round and reactive to light, extraocular movements intact, conjunctiva are normal. ENT: Nares patent, oropharynx clear without exudates. Moist mucous membranes. NECK: Normal range of motion, supple without lymphadenopathy LUNGS: Breath sounds clear to auscultation bilaterally and equal. No wheezes rales or rhonchi. HEART: Regular rate and rhythm without murmurs ABDOMEN: Soft, mildly tender in the right upper quadrant no rebound or guarding Female : deferred Musculoskeletal: Normal range of motion, no pitting or edema. No cyanosis. NEUROLOGICAL: Cranial nerves grossly intact. Normal speech, normal gait. Normal sensory, motor exams PSYCH: Normal mood, normal affect. SKIN: Warm, Dry, normal turgor, no rashes or lesions noted. Dictation was performed using [employer] voice recognition software Physical Exam - Vital signs Vitals: Temp Pulse Resp BP Pulse Ox 98.5 F 80 18 118/60 99 02/18/17 23:18 02/18/17 23:18 02/18/17 23:18 02/18/17 23:18 02/18/17 23:18 Course - Re-evaluation Re-evalutation: 02/19/17 00:30 On physical examination patient appears to have a tender right upper quadrant and may have some dysfunction of her gallbladder, I have low suspicion for any life-threatening issues since this is ongoing now for 9 months 02/19/17 02:20 Patient's lab work imaging noted no significant abnormality, I do believe that she may have dysfunctional gallbladder, she will be given a surgeon to follow- up with his this has been a chronic nine-month process and she may want to have it taken out After performing a Medical Screening Examination, I estimate there is LOW risk for ACUTE APPENDICITIS, BOWEL OBSTRUCTION, ACUTE CHOLECYSTITIS, PERFORATED DIVERTICULITIS, INCARCERATED HERNIA, PANCREATITIS, PELVIC INFLAMMATORY DISEASE, PERFORATED ULCER, ECTOPIC , or TUBO-OVARIAN ABSCESS, thus I consider the discharge disposition reasonable. Also, there is no evidence or peritonitis , sepsis, or toxicity. I have reevaluated this patient multiple times and no significant life threatening changes are noted. The patient and I have discussed the diagnosis and risks, and we agree with discharging home with close follow-up with the understanding that symptoms and presentations can change. We also discussed returning to the Emergency Department immediately if new or worsening symptoms occur. We have discussed the symptoms which are most concerning (e.g., bloody stool, fever, changing or worsening pain, vomiting) that necessitate immediate return. - Vital Signs Vital signs: Temp Pulse Resp BP Pulse Ox 98.5 F 80 18 125/78 99 02/18/17 23:18 02/18/17 23:18 02/19/17 02:03 02/19/17 02:03 02/19/17 02:03 - Laboratory Result Diagrams: 02/19/17 01:29 02/19/17 01:29 Laboratory results interpreted by me: 02/19/17 02/19/17 01:29 01:29 RBC 3.69 L Hgb 10.0 L Hct 30.4 L RDW 18.8 H Plt Count 476 H Seg Neutrophils % 84.2 H Lymphocytes % 11.4 L Chloride 109 H Direct Bilirubin 0.5 H AST 73 H Alkaline Phosphatase 178 H - Diagnostic Test Radiology reviewed: Image reviewed, Reports reviewed - Nonspecific dilatation report given to patient Discharge - Discharge Clinical Impression: Abdominal pain Qualifiers: Abdominal location: unspecified location Qualified Code(s): R10.9 - Unspecified abdominal pain Condition: Stable Disposition: HOME, SELF-CARE Instructions: Abdominal Pain ([facility]), Gallbladder Disease ([facility]) Prescriptions: Metoclopramide HCl [Reglan 10 mg Tablet] 1 - 2 tab PO ASDIR PRN #25 tablet PRN Reason: Referrals: LINDSEY DOMINGUEZ MD [Primary Care Provider] - Follow up as needed JOSE CUNHA MD [ACTIVE STAFF] - Follow up tomorrow
[2017-02-19 01:46] LABS: ABSOLUTE LYMPHOCYTES (AUTO) 1.1 10^3/uL (0.5-4.7); ABSOLUTE MONOCYTES (AUTO) 0.3 10^3/uL (0.1-1.4); ABSOLUTE NEUT (AUTO) 7.8 10^3/uL (1.7-8.2); BASOPHILS % (AUTO) 0.3 % (0-2); EOSINOPHILS % (AUTO) 0.3 % (0-6); HEMATOCRIT 30.4 % (36.0-47.0); HGB HCT DIFFERENCE -0.4; LYMPHOCYTES % (AUTO) 11.4 % (13-45); MEAN CORPUSCULAR HEMOGLOBIN 27.2 pg (27.0-33.4); MEAN CORPUSCULAR VOLUME 82 fl (80-97); MONOCYTES % (AUTO) 3.8 % (3-13); RED BLOOD COUNT 3.69 10^6/uL (3.72-5.28); RED CELL DISTRIBUTION WIDTH 18.8 % (11.5-14.0); SEGMENTED NEUTROPHILS % (AUTO) 84.2 % (42-78); WHITE BLOOD COUNT 9.3 10^3/uL (4.0-10.5)
--- NOTE | 2017-02-19 01:54 | RADIOLOGY REPORT (SQ) ---
EXAM DESCRIPTION: U/S ABDOMEN LIMITED W/O DOP COMPLETED DATE/TIME: 02/19/2017 1:21 am REASON FOR STUDY: RUQ pain COMPARISON: Ultrasound, Ob, 01/06/2017 08/17/2016. TECHNIQUE: Dynamic and static grayscale images acquired of the abdomen and recorded on PACS. Additio nal selected color Doppler and spectral images recorded. LIMITATIONS: None. FINDINGS: PANCREAS: No masses. Visualized pancreatic duct normal caliber. LIVER: No masses. Echotexture normal. LIVER VASCULATURE: Normal directional flow of the main portal vein and hepatic veins. GALLBLADDER: No stones. Normal wall thickness. No pericholecystic fluid. ULTRASOUND-DETECTED JOHNSON'S SIGN: Negative. INTRAHEPATIC DUCTS AND COMMON DUCT: 1.0 cm diameter common bile duct. Intrahepatic ducts normal amarilys candis. No filling defects. INFERIOR VENA CAVA: Normal flow. AORTA: No aneurysm. RIGHT KIDNEY: Normal size. Normal echogenicity. No solid or suspicious masses. No hydronephrosis. No calcifications. PERITONEAL AND RIGHT PLEURAL SPACE: No ascites or effusions. OTHER: No other significant findings. IMPRESSION: 1.0 cm diameter nonspecific dilated common bile duct. No intrahepatic ductal distention . Otherwise, unremarkable. TECHNICAL DOCUMENTATION: JOB ID: [id number] [employer]- All Rights Reserved
[2017-02-19 01:56] LABS: ALANINE AMINOTRANSFERASE 46 U/L (9-52); ALBUMIN 3.9 g/dL (3.5-5.0); ALKALINE PHOSPHATASE 178 U/L (38-126); ANION GAP 11 (5-19); ASPARTATE AMINO TRANSFERASE 73 U/L (14-36); BILIRUBIN,DIRECT 0.5 mg/dL (0.0-0.4); BILIRUBIN,TOTAL 0.7 mg/dL (0.2-1.3); BLOOD UREA NITROGEN 10 mg/dL (7-20); CALCIUM 9.3 mg/dL (8.4-10.2); CARBON DIOXIDE 25 mmol/L (22-30); CHLORIDE 109 mmol/L (98-107); CREATININE RESULT 0.85 mg/dL (0.52-1.25); GLUCOSE 99 mg/dL (75-110); LIPASE 139.4 U/L (23-300); POTASSIUM 4.4 mmol/L (3.6-5.0); SODIUM 144.9 mmol/L (137-145); TOTAL PROTEIN 6.5 g/dL (6.3-8.2)
[2017-02-19 02:20] VITALS: BP 125/78
[2017-02-19 03:47] LABS: AMORPHOUS SEDIMENT,URINE TRACE /HPF; APPEARANCE,URINE SLIGHTLY-CLOUDY; BILIRUBIN,URINE NEGATIVE (NEGATIVE); GLUCOSE, URINE NEGATIVE (NEGATIVE); KETONES,URINE TRACE mg/dL (NEGATIVE); LEUKOCYTE ESTERASE,URINE MODERATE (NEGATIVE); NITRITE,URINE NEGATIVE (NEGATIVE); PROTEIN,URINE 100 mg/dL (NEGATIVE); URINE SPECIFIC GRAVITY 1.036
== END 2017-02-19 02:34 | disposition home or self-care (01) ==
LOC: ER 23:11
DX: O90.89 Other complications of the puerperium, not elsewhere classified (principal); R10.11 Right upper quadrant pain; R10.13 Epigastric pain; R11.2 Nausea with vomiting, unspecified; K83.8 Other specified diseases of biliary tract; O99.63 Diseases of the digestive system complicating the puerperium
CPT/HCPCS: 99284; 96374; 96375; 36415; 87086; 83690; 85025; 80053; 81001; 76705; J1885; J2405

== ENCOUNTER 2019-08-17 15:44 | Emergency (ER) | payer SELFPAY ==
--- NOTE | 2019-08-17 16:27 | ER Document Report ---
ED Medical Screen (RME) - General Chief Complaint: Vag Bleeding, +preg <12wks Stated Complaint: VAGINAL BLEEDING Time Seen by Provider: 08/17/19 16:23 Primary Care Provider: LINDSEY DOMINGUEZ MD [Primary Care Provider] - Follow up as needed Mode of Arrival: Ambulatory Information source: Patient Notes: 24-year-old female presents to ED for complaint of vaginal bleeding x8 days. She has had pelvic pain. She went to her primary doctor for a exam and told them that she had a day.. She states while she was there they did a test and told her that she was . She states last menstrual period was July 07. She does not have any past medical history except for surgery for umbilical hernia as a child. She states the blood has been dark red at first but now is bright red with dark clots. She states she is only used 2 pads today. She states that the primary care told her she was concerned about a ectopic . Patient is alert oriented respirations regular nonlabored speaking in full sentences. I have greeted and performed a rapid initial assessment of this patient. A comprehensive ED assessment and evaluation of the patient, analysis of test results and completion of medical decision making process will be conducted by an additional ED providers. TRAVEL OUTSIDE OF THE [place] IN LAST 30 DAYS: No - Related Data Allergies/Adverse Reactions: No Known Allergies Allergy (Verified 01/27/17 23:41) Past Medical History Renal/ Medical History: Denies: Hx Peritoneal Dialysis Traumatic Medical History: Reports: Hx Fractures Past Surgical History: Reports: Hx Abdominal Surgery - umbilical hernia at 4 yrs. old, Hx Orthopedic Surgery - rt arm broken at 16 yrs. old (reset) - Immunizations Immunizations up to date: Yes Hx Diphtheria, Pertussis, Tetanus Vaccination: Yes - 09/01/15 Physical Exam - Vital signs Vitals: Temp Pulse Resp BP Pulse Ox 98.8 F 108 H 16 129/87 H 99 08/17/19 15:49 08/17/19 15:49 08/17/19 15:49 08/17/19 15:49 08/17/19 15:49 Course - Vital Signs Vital signs: Temp Pulse Resp BP Pulse Ox 98.8 F 108 H 16 129/87 H 99 08/17/19 16:20 08/17/19 15:49 08/17/19 15:49 08/17/19 15:49 08/17/19 15:49 Doctor's Discharge - Discharge Referrals: LINDSEY DOMINGUEZ MD [Primary Care Provider] - Follow up as needed
[2019-08-17 17:04] LABS: ABSOLUTE BASOPHILS # (AUTO) 0.1 10^3/uL (0.0-0.2); ABSOLUTE EOSINOPHILS # (AUTO) 0.3 10^3/uL (0.0-0.6); ABSOLUTE LYMPHOCYTES (AUTO) 2.2 10^3/uL (0.5-4.7); ABSOLUTE MONOCYTES (AUTO) 0.7 10^3/uL (0.1-1.4); BASOPHILS % (AUTO) 0.9 % (0-2); EOSINOPHILS % (AUTO) 3.1 % (0-6); HEMATOCRIT 37.4 % (36.0-47.0); HEMOGLOBIN 12.6 g/dL (12.0-15.5); LYMPHOCYTES % (AUTO) 26.7 % (13-45); MEAN CORPUSCULAR HEMOGLOBIN 26.7 pg (27.0-33.4); MEAN CORPUSCULAR HGB CONC 33.8 g/dL (32.0-36.0); MEAN CORPUSCULAR VOLUME 79 fl (80-97); MONOCYTES % (AUTO) 8.1 % (3-13); PLATELET COUNT 477 10^3/uL (150-450); RED BLOOD COUNT 4.73 10^6/uL (3.72-5.28); RED CELL DISTRIBUTION WIDTH 15.5 % (11.5-14.0); SEGMENTED NEUTROPHILS % (AUTO) 61.2 % (42-78); TOTAL CELLS COUNTED % (AUTO) 100 %; WHITE BLOOD COUNT 8.2 10^3/uL (4.0-10.5)
[2019-08-17 17:12] LABS: APPEARANCE,URINE SLIGHTLY-CLOUDY; BILIRUBIN,URINE NEGATIVE (NEGATIVE); COLOR,URINE YELLOW; GLUCOSE, URINE NEGATIVE (NEGATIVE); KETONES,URINE NEGATIVE (NEGATIVE); PROTEIN,URINE 30 mg/dL (NEGATIVE); URINE SPECIFIC GRAVITY 1.028; UROBILINOGEN,URINE NEGATIVE mg/dL (<2.0)
[2019-08-17 17:25] LABS: ALBUMIN 4.1 g/dL (3.5-5.0); ALKALINE PHOSPHATASE 99 U/L (38-126); ANION GAP 11 (5-19); ASPARTATE AMINO TRANSFERASE 29 U/L (14-36); BILIRUBIN,TOTAL 0.2 mg/dL (0.2-1.3); BLOOD UREA NITROGEN 8 mg/dL (7-20); CALCIUM 9.7 mg/dL (8.4-10.2); CARBON DIOXIDE 23 mmol/L (22-30); CHLORIDE 104 mmol/L (98-107); GLUCOSE 99 mg/dL (75-110); POTASSIUM 4.3 mmol/L (3.6-5.0); TOTAL PROTEIN 7.4 g/dL (6.3-8.2)
--- NOTE | 2019-08-17 19:12 | RADIOLOGY REPORT (SQ) ---
EXAM DESCRIPTION: U/S OB TRANSVAGINAL W/O DOP IMAGES COMPLETED DATE/TIME: 08/17/2019 6:56 pm REASON FOR STUDY: Pain vaginal bleeding COMPARISON: None. TECHNIQUE: Endovaginal static and realtime grayscale images acquired of the pelvis. Additional selec earnest spectral and color Doppler images recorded. All images stored on PACs. CLINICAL AGE: Last menses 07/04/2027, estimated age 6 weeks 2 days [facility] LIMITATIONS: None. FINDINGS: UTERUS: Uterus measures 7 x 6 x 4 cm in size. The endometrium is thickened and heterogene ous. A hypoechoic area in the endometrium is present measuring 1.4 x 0.4 cm in size which could repr esent a remnant of a gestational sac. No living embryo is identified. RIGHT ADNEXA: Normal ovary with normal vascular flow. Right ovary 3.4 x 3.3 x 2.1 cm. No adnexal fr ee fluid. No adnexal masses. LEFT ADNEXA: Normal ovary with normal vascular flow. Trace left adnexal free fluid.No adnexal masses. FREE FLUID: There is trace left adnexal and cul-de-sac fluid. OTHER: No other significant finding. IMPRESSION: NO VISUALIZED INTRA- OR EXTRAUTERINE . bHCG LEVEL TOO LOW TO EXPECT VISUALIZATION OF . ABNORMAL 1.4 X 0.4 CM HYPOECHOIC LESION IN THE ENDOMETRIUM COULD REPRESENT EMBRYO DEMISE. HOWEVER, E CTOPIC CANNOT BE EXCLUDED. FOLLOW-UP ULTRASOUND AND SERIAL BHCG LEVELS STRONGLY RECOMMENDED TO ACCURATELY ASSESS STATU S. TECHNICAL DOCUMENTATION: JOB ID: [id number] [employer]- All Rights Reserved Reading location - IP/workstation name: [id number]
--- NOTE | 2019-08-17 21:14 | ER Document Report ---
ED General - General Chief Complaint: Vag Bleeding, +preg <12wks Stated Complaint: VAGINAL BLEEDING Time Seen by Provider: 08/17/19 16:23 Primary Care Provider: LINDSEY DOMINGUEZ MD [ACTIVE STAFF] - Follow up as needed Mode of Arrival: Ambulatory Notes: 24-year-old G2, P1 female presents to the emergency department with chief complaint of vaginal bleeding for the past 8 days. Patient also complains of right adnexal pain. Patient went to her primary doctor for a routine exam, told them she was bleeding, they did a test, and it was positive. LMP 07/08/2019. Patient states that initially the blood was dark red but now it is bright red with dark clots and has slowed down considerably. Patient is only gone through 2 pads today. Patient was referred over here by her primary due to concern for potential ectopic . Patient denies fevers or chills, denies nausea or vomiting, denies any CVAT, denies any dysuria or urinary frequency, denies any foul-smelling abnormal vaginal discharge. TRAVEL OUTSIDE OF THE [place] IN LAST 30 DAYS: No - Related Data Allergies/Adverse Reactions: No Known Allergies Allergy (Verified 01/27/17 23:41) Past Medical History - General Information source: Patient Last Menstrual Period: 07/08/19 - Social History Smoking Status: Never Smoker Family History: Reviewed & Not Pertinent Patient has suicidal ideation: No Patient has homicidal ideation: No Renal/ Medical History: Denies: Hx Peritoneal Dialysis Traumatic Medical History: Reports: Hx Fractures Past Surgical History: Reports: Hx Abdominal Surgery - umbilical hernia at 4 yrs. old, Hx Orthopedic Surgery - rt arm broken at 16 yrs. old (reset) - Immunizations Immunizations up to date: Yes Hx Diphtheria, Pertussis, Tetanus Vaccination: Yes - 09/01/15 Review of Systems - Review of Systems Constitutional: See HPI EENT: No symptoms reported Cardiovascular: No symptoms reported Respiratory: See HPI Gastrointestinal: See HPI Genitourinary: See HPI Female Genitourinary: See HPI Musculoskeletal: No symptoms reported Skin: No symptoms reported Hematologic/Lymphatic: No symptoms reported Neurological/Psychological: No symptoms reported Physical Exam - Vital signs Vitals: Temp Pulse Resp BP Pulse Ox 98.8 F 108 H 16 129/87 H 99 08/17/19 15:49 08/17/19 15:49 08/17/19 15:49 08/17/19 15:49 08/17/19 15:49 - Notes Notes: PHYSICAL EXAMINATION: Reviewed vital signs and charting by RN GENERAL: Alert, interacts well. No acute distress. HEAD: Normocephalic, atraumatic. EYES: Pupils equal and round. Extraocular movements intact. ENT: Oral mucosa moist, tongue midline. NECK: Full range of motion. Trachea midline. LUNGS: Clear to auscultation bilaterally, no wheezes, rales, or rhonchi. No respiratory distress. HEART: Regular rate and rhythm. No murmur ABDOMEN: soft, right lower quadrant tenderness to palpation. No distention. Bowel sounds present EXTREMITIES: Moves all 4 extremities spontaneously. No edema, No cyanosis. PSYCH: Normal affect, normal mood. SKIN: Warm, dry, normal turgor. No rashes or lesions noted. Course - Re-evaluation Re-evalutation: 08/17/19 21:12 Well-appearing in no acute distress. Pelvic exam was performed with CAITLIN Cardona, chaperoning in the room. There was very little blood seen in the vaginal introitus, cervix was visualized and closed, nonfriable. Samples were sent to the lab. Ultrasound showed a hypoechoic area intrauterine that is concerning for potential demise. hCG was 351. Plan is repeat beta-hCG in 48 hours. Wet mount pending. 08/17/19 21:38 Wet mount completed and did not show any evidence of bacterial vaginosis or any other signs of infection. Plan is to get repeat hCG testing in 48 hours. Patient's bleeding has resolved. Patient has been instructed that we cannot actually rule out ectopic and she must get follow-up in 48 hours. She understands and agrees with the plan. At this time she is stable for discharge. 08/17/19 21:42 - Vital Signs Vital signs: Temp Pulse Resp BP Pulse Ox 98.8 F 108 H 16 129/87 H 99 08/17/19 16:20 08/17/19 15:49 08/17/19 15:49 08/17/19 15:49 08/17/19 15:49 - Laboratory Result Diagrams: 08/17/19 16:40 08/17/19 16:40 Laboratory results interpreted by me: 04/23/20 04/23/20 04/23/20 16:40 16:40 16:40 MCV 79 L MCH 26.7 L RDW 15.5 H Plt Count 477 H Beta HCG, Quant 389.64 H Urine Protein 30 H Urine Blood LARGE H Discharge - Discharge Clinical Impression: Vaginal bleeding affecting early Qualifiers: Weeks of gestation: less than 8 weeks Qualified Code(s): Z3A.01 - Less than 8 weeks gestation of Condition: Good Disposition: HOME, SELF-CARE Additional Instructions: You need to return to the ED or the women's health clinic in 48 hours for a recheck of your hormone level. The ultrasound showed a possible gestational sac but it is too early to tell so early in . We cannot definitively exclude an ectopic at this time. Please return if you develop severe abdominal pain, bleeding that goes through more than 2 pads for more than 2 hours, pass out, or have any other symptoms that are concerning to you. Please follow-up closely with your OBGYN regarding todays visit. Referrals: LINDSEY DOMINGUEZ MD [ACTIVE STAFF] - Follow up as needed
[2019-08-17 21:15] LABS: RBCS (WET MOUNT) FEW RBCS SEEN; T.VAGINALIS (WET MOUNT) NO TRICHOMONAS SEEN; WBCS (WET MOUNT) FEW WBCS SEEN; YEAST (WET MOUNT) NO YEAST SEEN
[2019-08-17 22:02] VITALS: BP 128/80
[2019-08-17 22:39] LABS: CHLAM PCR NOT DETECTED (NOT DETECT)
== END 2019-08-17 22:02 | disposition home or self-care (01) ==
LOC: ER 15:44
DX: O20.9 Hemorrhage in early pregnancy, unspecified (principal); O26.891 Other specified pregnancy related conditions, first trimester; R10.813 Right lower quadrant abdominal tenderness; Z3A.01 Less than 8 weeks gestation of pregnancy
CPT/HCPCS: 36415; 76817; 80053; 81001; 84702; 85025; 86900; 86901; 87210; 87491; 87591; 99284

== ENCOUNTER → 2019-08-20 | Outpatient (CLI) | payer MEDICAID, OTHER | LOC: OD 09:23 | PROVIDERS: ATTEND Physician Assistant | DX: O20.9 Hemorrhage in early pregnancy, unspecified (principal); Z3A.00 Weeks of gestation of pregnancy not specified | CPT/HCPCS: 36415; 84702 ==

== ENCOUNTER → 2019-08-22 | Outpatient (CLI) | payer OTHER | LOC: OD 09:53 | PROVIDERS: ATTEND Obstetrics & Gynecology | DX: O20.0 Threatened abortion (principal); Z3A.00 Weeks of gestation of pregnancy not specified | CPT/HCPCS: 36415; 84702 ==

== ENCOUNTER → 2019-08-26 | Outpatient (CLI) | payer SELFPAY | LOC: OD 08:27 | PROVIDERS: ATTEND Obstetrics & Gynecology | DX: O20.0 Threatened abortion (principal) | CPT/HCPCS: 36415; 84702 ==

== ENCOUNTER 2019-10-28 10:48 | Emergency (ER) | payer SELFPAY ==
[2019-10-28 10:54] VITALS: BP 131/66
[2019-10-28] MEDS ORDERED: ACETAMINOPHEN 325 MG TABLET PO ONE (11:17)
--- NOTE | 2019-10-28 11:21 | ER Document Report ---
ED Extremity Problem, Lower - General Chief Complaint: Foot Injury Stated Complaint: FALL/FOOT INJURY Time Seen by Provider: 10/28/19 11:14 Primary Care Provider: LINDSEY DOMINGUEZ MD [ACTIVE STAFF] - Follow up as needed ODIN DUNCAN DPM [ACTIVE STAFF] - Follow up as needed Mode of Arrival: Ambulatory Information source: Patient Notes: 24-year-old female presents to ED for pain in the lateral aspect of the right foot and ankle. She states she fell down the mother steps last night. Patient is alert oriented respirations regular nonlabored speaking in full sentences. She states she has no pain or injury except for to the right foot and ankle. TRAVEL OUTSIDE OF THE [place] IN LAST 30 DAYS: No - HPI Patient complains to provider of: Injury, Pain, Swelling Location: Ankle, Foot Occurred: Yesterday - Last night Where: Home - Mother's house Onset/Duration: Persistent Quality of pain: Achy, Throbbing Severity: Moderate Pain Level: 4 Context: Fell Recent injury: Yes Associated symptoms: Painful ambulation Exacerbated by: Hanging down, Movement, Walking Relieved by: Nothing - Related Data Allergies/Adverse Reactions: No Known Allergies Allergy (Verified 01/27/17 23:41) Past Medical History - General Information source: Patient - Social History Smoking Status: Never Smoker Frequency of alcohol use: None Drug Abuse: None Lives with: Family Family History: Reviewed & Not Pertinent Patient has suicidal ideation: No Patient has homicidal ideation: No - Past Medical History Cardiac Medical History: Reports: None Pulmonary Medical History: Reports: None EENT Medical History: Reports: None Neurological Medical History: Reports: None Endocrine Medical History: Reports: None Renal/ Medical History: Reports: None Malignancy Medical History: Reports: None GI Medical History: Reports: None Musculoskeletal Medical History: Reports Hx Musculoskeletal Trauma Skin Medical History: Reports None Psychiatric Medical History: Reports: None Traumatic Medical History: Reports: Hx Fractures - Right arm Infectious Medical History: Reports: None Past Surgical History: Reports: Hx Orthopedic Surgery - rt arm broken at 16 yrs. old (reset), Hx Umbilical Hernia - Immunizations Immunizations up to date: Yes Hx Diphtheria, Pertussis, Tetanus Vaccination: Yes - 09/01/15 Review of Systems - Review of Systems Constitutional: No symptoms reported EENT: No symptoms reported Cardiovascular: No symptoms reported Respiratory: No symptoms reported Gastrointestinal: No symptoms reported Genitourinary: No symptoms reported Female Genitourinary: No symptoms reported Musculoskeletal: No symptoms reported, Ankle swelling Skin: No symptoms reported Hematologic/Lymphatic: No symptoms reported Neurological/Psychological: No symptoms reported -: Yes All other systems reviewed and negative Physical Exam - Vital signs Vitals: Temp Pulse Resp BP Pulse Ox 98.4 F 83 16 131/66 H 96 10/28/19 10:53 10/28/19 10:53 10/28/19 10:53 10/28/19 10:53 10/28/19 10:53 Interpretation: Normal - General General appearance: Appears well, Alert - HEENT Head: Normocephalic, Atraumatic Eyes: Normal Pupils: PERRL - Respiratory Respiratory status: No respiratory distress Chest status: Nontender Breath sounds: Normal Chest palpation: Normal - Cardiovascular Rhythm: Regular Heart sounds: Normal auscultation Murmur: No - Abdominal Inspection: Normal Distension: No distension Bowel sounds: Normal Tenderness: Nontender Organomegaly: No organomegaly - Back Back: Normal, Nontender - Extremities General upper extremity: Normal inspection, Nontender, Normal color, Normal ROM, Normal temperature General lower extremity: Normal color, Normal ROM, Normal temperature. No: Lani's sign Ankle: Tender, Ecchymosis, Edema. No: Unable to bear weight - Has to walk on inside of foot Foot: Tender, Ecchymosis, Edema, Metatarsal compress. pain, No evidence of FB, Unable to bear weight - Has to walk on inside of foot - Neurological Neuro grossly intact: Yes Cognition: Normal Orientation: AAOx4 [place] Coma Scale Eye Opening: Spontaneous Zohreh Coma Scale Verbal: Oriented Zohreh Coma Scale Motor: Obeys Commands Zohreh Coma Scale Total: 15 Speech: Normal Motor strength normal: LUE, RUE, LLE, RLE Sensory: Normal - Psychological Associated symptoms: Normal affect, Normal mood - Skin Skin Temperature: Warm Skin Moisture: Dry Skin Color: Normal Course - Re-evaluation Re-evalutation: 10/28/19 22:47 No abnormalities noted on foot or ankle x-ray. Patient was treated with an Jason wrap for her ankle pain and a postop shoe for her foot pain. Patient was then given instructions on crutches. Patient tolerated procedure well. Patient was discharged home with instructions to follow-up with primary care and orthopedics. Patient verbalized understanding and agreement with treatment plan and patient was discharged home. - Vital Signs Vital signs: Temp Pulse Resp BP Pulse Ox 98.4 F 83 16 131/66 H 96 10/28/19 10:53 10/28/19 10:53 10/28/19 10:53 10/28/19 10:53 10/28/19 10:53 - Diagnostic Test Radiology reviewed: Image reviewed, Reports reviewed Procedures - Immobilization Right Foot Time completed: 12:05 Pre-Proc Neuro Vasc Exam: Normal Immobilizer type: Crutches, Post-op shoe Performed by: RN PCT Post-Proc Neuro Vasc Exam: Normal Alignment checked and good: Yes Right Ankle Time completed: 12:05 Immobilizer type: Jason wrap Performed by: Provider Post-Proc Neuro Vasc Exam: Normal, Unchanged from pre-exam Alignment checked and good: Yes Discharge - Discharge Clinical Impression: Acute right ankle pain, Right foot pain Condition: Stable Disposition: HOME, SELF-CARE Additional Instructions: SPRAIN: Your injury is a sprain. A sprain results from stretching or tearing of the ligaments, usually from a twisting injury. The ligaments will require time and protection in order to heal properly. Many sprains are quite disabling and should be taken seriously. The usual initial treatment of sprains is cold packs, elevation, and rest of the injured area. Your physician has assessed the seriousness of your ligament injury, and has outlined a treatment plan. Understand that this treatment may change, depending on how you progress. If a re-examination was recommended, it is important that you follow up as instructed. Call the doctor any time if there is severe pain, numbness, or loss of function in the injured area. JASON WRAP: A compression dressing (jason wrap) has been placed. This helps hold the area still. It limits swelling and internal bleeding. The wrap should be comfortably snug -- not tight. You should feel a sense of pressure, but not severe pain under the wrap. Unless the physician tells you otherwise, you can adjust the wrap for comfort. If the wrap causes symptoms suggesting it's too tight -- uncomfortable pressure, swelling or discoloration beyond the wrap, numbness, or severe pain -- you must loosen the wrap. If these symptoms don't resolve promptly, return for re-evaluation. Post-Op Shoe You are to use a "post-op shoe," sometimes also called a "bunnion shoe." This shoe helps protect minor fractures, sprains, and other injuries of the toes or foot. You may remove the shoe for bathing. Walk carefully. If you're feeling pain, put less weight on the foot, take smaller steps, or use a cane. If you have a new injury, you may need to use crutches for the first couple of days. If pain still prevents walking after a few days, contact the doctor. If there's unexpected pain in your foot, if blisters or sore spots develop, or if the shoe is physically coming apart, return at once. Remember that you're welcome to come in at any time to have the fit of the shoe checked and adjusted. USE OF CRUTCHES: The doctor has recommended that you not bear weight at this time. You will need to use crutches. Adjust the crutches so the tops come to about two inches under the armpit while you are standing upright. Use your hands -- not your armpits -- to support your weight. To get into a chair, support yourself with one crutch on the injured side. Hold the chair with the other hand, then lower yourself while putting all your weight on the good leg. Going up stairs is `good leg up, step up, then bring up crutches and bad leg.' Down stairs is `bad leg and crutches down, then bring good leg down.' If you develop numbness or swelling in an arm or hand, you are using the crutches incorrectly. Return if you are having any problems with the crutches. ICE & ELEVATION: Apply ice packs frequently against the painful area. Many different schedules are recommended, such as "20 minutes on, 20 minutes off" or "one hour ice, two hours rest." If you need to work, you may need to go longer between ice treatments. You should plan to have the area ice packed AT LEAST one-fourth of the time. The ice should be applied over the wrap, tape, or splint, or over a layer of cloth -- not directly against the skin. Some ice bags have a built-in cloth and can be put directly on the skin. Your injured part should be elevated as much as possible over the next 48 hours. Try to keep the injury above the level of the heart. Avoid use of the injured area. Elevation and rest will decrease the swelling. USE OF FPON-EZP-YBFNFKH IBUPROFEN: Ibuprofen (Advil, Nuprin, Medipren, Motrin IB) is a medication for fever and pain control. In addition, it has anti- inflammatory effects which may be beneficial, especially in the treatment of injuries. It's best to take ibuprofen with food. Persons with ulcer disease or allergy to aspirin should notify their physician of this before taking ibuprofen. Ibuprofen can be given every four to six hours, for a total of four doses daily. Age Pain or fever dose Antiinflammatory dose 6-8 yr 200 mg (1 tab) 200 mg (1 tab) 9-11 yr 200 mg (1 tab) 200-400 mg (1-2 tab) 11-14 yr 200-400 mg (1-2 tab) 400 mg (2 tab) 15-adult 400 mg (2 tab) 600 mg (3 tab) Exercises for the Foot Muscles Stretching and strengthening of the foot muscles is an important part of recovery from injury, as well as in treatment and prevention of overuse syndromes like plantar fasciitis. TOWEL CURLS: Put your foot on a dry towel. Curl your toes to pick it up, then drop it. As it becomes easier, use a heavier towel. Repeat 20 times, twice daily. HOFFMANN CURLS: Lift and turn your knee, so your foot is against the opposite leg about mid-hoffmann. Try to "grab" the entire hoffmann bone with your toes, while moving your foot up and down the leg for one minute. Repeat twice daily. TOE LIFTS: Put your opposite foot over your 2nd to 5th toes. Now lift the toes up, pushing the other foot upward. Repeat 10 times, twice daily. Repeat using the large toe. EVERSIONS: Cross the opposite foot over, placing the heel just behind the 4th and 5th toes. Try to lift up the outside of the bottom foot. Hold 10 seconds. Repeat twice daily. FOLLOW-UP CARE: If you have been referred to a physician for follow-up care, call the physicians office for an appointment as you were instructed or within the next two days. If you experience worsening or a significant change in your symptoms, notify the physician immediately or return to the Emergency Department at any time for re-evaluation. Referrals: LINDSEY DOMINGUEZ MD [ACTIVE STAFF] - Follow up as needed ODIN DUNCAN DPM [ACTIVE STAFF] - Follow up as needed
--- NOTE | 2019-10-28 11:46 | RADIOLOGY REPORT (SQ) ---
EXAM DESCRIPTION: FOOT RIGHT COMPLETE IMAGES COMPLETED DATE/TIME: 10/28/2019 11:33 am REASON FOR STUDY: Pain injury lateral aspect of right foot COMPARISON: None. NUMBER OF VIEWS: Three views. TECHNIQUE: AP, lateral and oblique radiographic images acquired of the right foot. LIMITATIONS: None. FINDINGS: MINERALIZATION: Normal. BONES: No acute fracture or dislocation. No worrisome bone lesions. JOINTS: No effusions. SOFT TISSUES: No soft tissue swelling. No foreign body. OTHER: No other significant finding. IMPRESSION: NEGATIVE STUDY OF THE RIGHT FOOT. NO RADIOGRAPHIC EVIDENCE OF ACUTE INJURY. TECHNICAL DOCUMENTATION: JOB ID: [id number] 2010 [employer]- All Rights Reserved Reading location - IP/workstation name: [email or web address]
--- NOTE | 2019-10-28 11:47 | RADIOLOGY REPORT (SQ) ---
EXAM DESCRIPTION: ANKLE RIGHT COMPLETE IMAGES COMPLETED DATE/TIME: 10/28/2019 11:33 am REASON FOR STUDY: pain and injury COMPARISON: None. NUMBER OF VIEWS: Three views. TECHNIQUE: AP, lateral, and oblique radiographic images acquired of the right ankle. LIMITATIONS: None. FINDINGS: MINERALIZATION: Normal. BONES: No acute fracture or dislocation. No worrisome bone lesions. JOINTS: No effusions. SOFT TISSUES: No soft tissue swelling. No foreign body. OTHER: No other significant finding. IMPRESSION: NEGATIVE STUDY OF THE RIGHT ANKLE. NO RADIOGRAPHIC EVIDENCE OF ACUTE INJURY. TECHNICAL DOCUMENTATION: JOB ID: [id number] 2010 [employer]- All Rights Reserved Reading location - IP/workstation name: [email or web address]
== END 2019-10-28 12:02 | disposition home or self-care (01) ==
LOC: ER 10:48
DX: M25.571 Pain in right ankle and joints of right foot (principal); M79.671 Pain in right foot
CPT/HCPCS: 99283

== ENCOUNTER → 2020-03-13 | Outpatient (CLI) | payer BC, MEDICAID ==
--- NOTE | 2020-03-13 19:27 | EKG REPORT ---
SEVERITY:- NORMAL ECG - SINUS RHYTHM : Confirmed by: Ruth Kaufman MD 13-Mar-2020 19:26:47
== END ==
LOC: RT 15:07
PROVIDERS: ATTEND Midwife
DX: O99.419 Diseases of the circulatory system complicating pregnancy, unspecified trimester (principal); R00.0 Tachycardia, unspecified; Z3A.00 Weeks of gestation of pregnancy not specified
CPT/HCPCS: 93005; 93010